=== PATIENT | female | born 1950 | race Caucasian/White ===

== ENCOUNTER 2020-03-22 02:23 | Observation (INO) | payer MEDICARE ==
[~2020-03-22] VITALS: Ht 165.1 cm; Wt 55.5 kg
[2020-03-22 02:39] LABS: BASOPHILS 0.9 % (0-2); EOSINOPHILS 5.4 % (0-7); HEMATOCRIT 42.3 % (36.0-48.0); HEMOGLOBIN 14.7 g/dL (12-16); IMMATURE GRANULOCYTES 0.5 % (0-5); LYMPHOCYTES 50.2 % (15-50); MCH 33.7 pg (26.0-34.0); MCHC 34.8 g/dL (31.0-37.0); MEAN PLATELET VOLUME 8.8 fL (7.4-10.4); MONOCYTES 6.9 % (2-11); NEUTROPHILS 36.1 % (40-80); PLATELET COUNT 221 10x3/uL (130-400); RBC 4.36 10x6/uL (4.00-5.40); RDW 15.1 % (11.5-14.5); WBC 7.8 10x3/uL (4.8-10.8)
[2020-03-22 02:53] LABS: APTT 27.9 SECONDS (22.8-39.4); INR 0.88 (0.85-1.17); PROTIME 11.9 SECONDS (11.6-15.0)
[2020-03-22 02:57] LABS: CALC OSMOLALITY 268 mosm/kg (275-300); CALCIUM 8.2 mg/dL (8.5-10.1); CARBON DIOXIDE 23.1 mmol/L (21.0-32.0); CHLORIDE - SERUM 98 mmol/L (98-107); CREATININE - SERUM 0.8 mg/dL (0.6-1.3); GLUCOSE 95 mg/dL (74-106); POTASSIUM - SERUM 3.8 mmol/L (3.5-5.1); SODIUM 134 mmol/L (136-145); UREA NITROGEN 14 mg/dL (7-18); eGFR NON AFRICAN AMERICAN 75 mL/min (90-120)
[2020-03-22 03:00] VITALS: BP 110/71
[2020-03-22 03:13] LABS: ALBUMIN 3.7 g/dL (3.4-5.0); ALKALINE PHOSPHATASE 105 U/L (30-120); ALT (SGPT) 15 U/L (10-68); AMYLASE - SERUM 97 U/L (25-115); BILIRUBIN - TOTAL 0.19 mg/dL (0.2-1.3); CKMB 1.1 U/L (0.0-3.6); CREATINE KINASE 56 UL (21-215); LIPASE 152 U/L (73-393); MAGNESIUM - SERUM 1.6 mg/dL (1.8-2.4); PROTEIN - SERUM 7.3 g/dL (6.4-8.2); TROPONIN-I < 0.017 ng/mL (0.000-0.060)
[2020-03-22 03:33] LABS: UDS - AMPHET NEGATIVE QUAL (NEGATIVE); UDS - BARB NEGATIVE QUAL (NEGATIVE); UDS - BENZO NEGATIVE QUAL (NEGATIVE); UDS - COCAINE NEGATIVE QUAL (NEGATIVE); UDS - OPIATE NEGATIVE QUAL (NEGATIVE); UDS - PCP NEGATIVE QUAL (NEGATIVE); UDS - THC NEGATIVE QUAL (NEGATIVE)
[2020-03-22 03:38] VITALS: BP 108/67
[2020-03-22 04:02] LABS: BILIRUBIN NEGATIVE (NEGATIVE); GLUCOSE NEGATIVE (NEGATIVE); KETONE NEGATIVE (NEGATIVE); NITRITE NEGATIVE (NEGATIVE); UROBILINOGEN NORMAL (NORMAL)
[2020-03-22 04:04] LABS: BACTERIA NONE SEEN /hpf (NEGATIVE); EPITHELIAL CELLS 0-5 /hpf (0-5); RED CELLS - URINE 0-5 /hpf (0-5); WHITE CELLS - URINE 0-5 /hpf (NEGATIVE)
[2020-03-22 04:37] VITALS: BP 117/88
[2020-03-22 07:03] VITALS: BMI 20.3
--- NOTE | 2020-03-22 08:12 | NUR ---
PT PLACED ON CONTACT ISO R/T BEDBUGS FOUND AND COLLECTED BY LAB PERSONJOVITA. WILL CTM.
[2020-03-22 08:41] LABS: CKMB 1.3 U/L (0.0-3.6); CREATINE KINASE 50 UL (21-215); TROPONIN-I 0.017 ng/mL (0.000-0.060)
[2020-03-22 09:10] VITALS: Ht 165.1 cm; Wt 55.5 kg
[2020-03-22 15:09] LABS: CREATINE KINASE 60 UL (21-215)
[2020-03-22 15:10] LABS: TROPONIN-I < 0.017 ng/mL (0.000-0.060)
[2020-03-22 17:06] VITALS: BP 145/72
--- NOTE | 2020-03-22 18:18 | NUR ---
PT CONTINUES TO COMPLAIN ABOUT GENERALIZED PAIN AND REQUESTED TO REST A FEW MORE HOURS BEFORE DISCHARGING. NOTIFIED THELMA ANN WHO ALSO SEEN THE PATIENT. WILL CTM.
--- NOTE | 2020-03-22 18:50 | NUR ---
REPORT RECEIVED, PT CARE ASSUMED. INTRODUCED SELF AND WROTE NAME ON BOARD. PT SITTING UP IN BED, WATCHING TV, [id number]. DENIES ANY NEEDS AT THIS TIME. BED IN LOWEST, SRX2, CALL LIGHT WITHIN REACH. WILL CTM.
[2020-03-22 20:02] LABS: CKMB 2.6 U/L (0.0-3.6); CREATINE KINASE 69 UL (21-215); TROPONIN-I 0.016 ng/mL (0.000-0.060)
--- NOTE | 2020-03-22 20:15 | NUR ---
PIV TO LEFT WRIST REMOVED, CATHETER TIP INTACT, NO S/S OF BLEEDING AT SITE, TOLERATED WELL. DISCHARGE PAPERWORK SIGNED AND PROVIDED, QUESTIONS ANSWERED, COPY PLACED IN CHART. ACCOMPANIED BY THIS NURSE TO FRIEND'S CAR VIA WHEELCHAIR W/O ISSUE.
== END 2020-03-22 20:15 | disposition home or self-care (01) ==
LOC: D.ER 02:23 → OBSVTIME 03:50 → D.M2 03:50
PROVIDERS: Family Medicine; ADMIT Family Medicine; ATTEND Family Medicine
DX: I20.9 Angina pectoris, unspecified (principal); F10.129 Alcohol abuse with intoxication, unspecified; E83.42 Hypomagnesemia; E87.1 Hypo-osmolality and hyponatremia; I10 Essential (primary) hypertension; Z72.0 Tobacco use